=== PATIENT | male | born 1955 | race Caucasian/White ===

== ENCOUNTER 2016-05-11 10:47 | Emergency (ER) | payer MEDICAID, OTHER ==
[~2016-05-11] VITALS: Ht 182.9 cm; Wt 90.7 kg
[2016-05-11] MEDS ORDERED: SODIUM CHLORIDE 0.9% 1,000 ML IV ONE (10:51)
[2016-05-11] MEDS ORDERED: SODIUM CHLORIDE 0.9% 250 ML IV ONE ×2 (10:51→13:02)
[2016-05-11 11:54] LABS: Anion Gap 10 (5-15); Aspartate Aminotransferase 29 U/L (15-37); BUN/Creatinine Ratio 8.4; Blood Urea Nitrogen 9 mg/dL (7-18); Carbon Dioxide 25 mmol/L (21-32); Chloride 105 mmol/L (98-107); GFR African American 91 mL/min; GFR Non-African American 75 mL/min; Glucose 83 mg/dL (74-106); Sodium 140 mmol/L (136-145)
[2016-05-11 11:57] LABS: Acetaminophen < 2.0 ug/mL (10-30); Alkaline Phosphatase 125 U/L (45-117); Bilirubin, Total 0.2 mg/dL (0.2-1.0); Total Protein 7.9 g/dL (6.4-8.2)
[2016-05-11 12:01] LABS: B-Type Natriuretic Peptide 31.99 pg/mL (0-100)
[2016-05-11 12:02] LABS: Temperature: 23.1 C (20.0-25.0)
[2016-05-11 12:04] LABS: Basophils # (auto) 0 uL; Basophils % (auto) 0.4 % (0.0-2.0); Eosinophils # (auto) 0 uL; Eosinophils % (auto) 0.3 % (0.0-7.0); Hematocrit 47.3 % (41.0-53.0); Hemoglobin 15.2 g/dL (13.5-17.5); Lymphocytes # (auto) 2.1 uL; Lymphocytes % (auto) 35.9 % (10.0-50.0); Mean Corpuscular Hemoglobin 28.8 pg (28.0-32.0); Mean Corpuscular Hgb Conc. 32.1 g/dL (32.0-36.0); Mean Corpuscular Volume 89.9 fL (80.0-100.0); Mean Platelet Volume 7.6 fL (7.4-10.4); Monocytes # (auto) 0.5 uL; Monocytes % (auto) 8.7 % (0.0-12.0); Neutrophils # (auto) 3.2 uL; Neutrophils % (auto) 54.7 % (37.0-80.0); Platelet Count (auto) 262 10^3/uL (140-450); Red Cell Distribution Width 17.5 % (11.6-16.0); White Blood Cell 5.8 10^3/uL (4.4-10.8)
[2016-05-11 12:09] LABS: INR 1.05 (0.9-1.15); Partial Thromboplastin Time 29.4 sec (22.64-33.71); Prothrombin Time 10.8 sec (9.37-12.3)
[2016-05-11] MEDS ORDERED: THIAMINE INJ 100 MG, MULTIPLE VITAMIN 10 ML, FOLIC ACID 1 MG, MAGNESIUM SULF SDV 50% 8 ... IV ONE ×5 (17:00)
[2016-05-11 23:00] LABS: Urine RBC None Seen /hpf (0 - 3)
[2016-05-11] MEDS ORDERED: LORazepam 2MG/ML-1ML VIAL IV PRN (23:45)
[2016-05-11] MEDS ORDERED: THIAMINE HCL 100 MG TAB PO ONE (23:45)
[2016-05-12 02:41] LABS: Urine Bilirubin Negative (Negative); Urine Blood Negative /uL (Negative); Urine Color Yellow (Yellow); Urine Glucose Normal (Normal); Urine Hyaline Cast MANY /lpf (0 - 2); Urine Ketone Negative (Negative); Urine Mucus FEW (None Seen); Urine Nitrite Negative (Negative); Urine Urobilinogen Normal (Negative)
[2016-05-12] MEDS ORDERED: LORazepam 0.5 MG TAB PO PRN ×2 (09:30→09:45)
[2016-05-12] MEDS ORDERED: LORazepam 0.5 MG TAB PO ONE (09:30)
[2016-05-12] MEDS ORDERED: LORazepam 2MG/ML-1ML VIAL IV PRN (09:34)
[2016-05-14 07:29] VITALS: BP 177/103
== END 2016-05-14 09:12 | disposition home or self-care (01) ==
LOC: ER 10:47
DX: T46.4X2A Poisoning by angiotensin-converting-enzyme inhibitors, intentional self-harm, initial encounter (principal); R45.851 Suicidal ideations; I10 Essential (primary) hypertension; F17.210 Nicotine dependence, cigarettes, uncomplicated; X58.XXXA Exposure to other specified factors, initial encounter; Y93.89 Activity, other specified; Y99.8 Other external cause status; Y92.89 Other specified places as the place of occurrence of the external cause
CPT/HCPCS: 36415; 71010; 80053; 80320; 80329; 81001; 83880; 84484; 85025; 85610; 85730; 96361; 96365; 96366; 99285; G0434; J3411; J3475; J7030

== ENCOUNTER 2016-05-22 18:33 | Emergency (ER) | payer MEDICAID ==
[~2016-05-22] VITALS: Ht 182.9 cm; Wt 68.0 kg
[~2016-05-22 18:33] MED LIST: EPINEPHrine HCL 1 MG/10 ML SYRG IV ONE; NALOXONE HCL 1MG/ML 2ML SYRINGE IV ONE; SODIUM BICARBONATE 8.4% INJ 50ML SYRINGE IV ONE
[2016-05-22 18:45] VITALS: BP 0/0
== END 2016-05-22 20:58 | disposition expired ==
LOC: EDUNIT# 18:33 → ER 18:52
DX: I46.9 Cardiac arrest, cause unspecified (principal); Z88.0 Allergy status to penicillin; I10 Essential (primary) hypertension
CPT/HCPCS: 92950; 99285; J0171; J2310